=== PATIENT | female | born 1960 | race Caucasian/White ===

== ENCOUNTER → 2017-02-05 | Outpatient (CLI) | payer BC ==
--- NOTE | 2017-02-05 16:06 | DI ---
Indication: ITS.REASON: R05 COUGH Procedure: CHEST, PA LATERAL: Encounter: Initial Comparison: 02/22/2016 Technique: PA and lateral radiographs of the chest were obtained. Findings: Lungs and airways: Normal lung volumes. No focal airspace consolidation. Normal pulmonary vasculature. Pleura: No pleural effusion or pneumothorax. Heart and mediastinum: The cardiomediastinal silhouette and great vessels are within normal limits. Osseous structures and soft tissues: No acute osseous abnormality is seen. Mild dextroconvex scoliosis of the thoracic spine. Impression: No acute cardiopulmonary process. .
== END ==
LOC: IMA 15:43
PROVIDERS: ATTEND Family Medicine
DX: R05 Cough (principal)